=== PATIENT | female | born 1955 | race Two or more races ===

== ENCOUNTER → 2024-06-21 | Outpatient (CLI) | payer OTHER, MEDICAID, SELFPAY ==
[2024-06-21 11:25] LABS: Basophils # (Auto) 0.1 Thou/mm3 (0.0-0.2); Basophils % (Auto) 1 % (0-2.5); Eosinophils # (Auto) 0.1 Thou/mm3 (0.0-0.5); Eosinophils % (Auto) 2 % (0-10); Hemoglobin 14.5 g/dL (12.0-16.0); Immature Granulocytes % (Auto) 0 % (0-0); Immature Granulocytes Auto 0.01 Thou/mm3 (0.00-0.00); Lymphocytes # (Auto) 1.8 Thou/mm3 (1.0-4.8); Lymphocytes % (Auto) 28 % (10-50); Mean Corpuscular HGB Conc 33.7 g/dl (31.0-37.0); Mean Corpuscular Hemoglobin 29.4 pg (25.0-35.0); Mean Corpuscular Volume 87 fL (80-100); Monocytes # (Auto) 0.5 Thou/mm3 (0.0-0.8); Monocytes % (Auto) 7 % (0-12); Neutrophils # (Auto) 3.9 Thou/mm3 (1.8-7.7); Neutrophils % (Auto) 62 % (37-80); Nucleated Red Blood Cell % 0 /100 WBC (0); Platelet Count 312 Thou/mm3 (140-440); RDW Standard Deviation 40.5 fL (36.4-46.3); Red Blood Count 4.93 Miln/mm3 (4.00-5.20); White Blood Count 6.3 Thou/mm3 (3.6-11.0)
[2024-06-21 11:43] LABS: Ferritin 15 ng/mL (7.3-270.7)
== END | disposition home or self-care (01) ==
PROVIDERS: PCP Internal Medicine Gastroenterology; Referring Provider Surgery Surgical Oncology; Visit Provider Internal Medicine Gastroenterology
DX: Z12.11 Encounter for screening for malignant neoplasm of colon (principal)
CPT/HCPCS: 36415; 82728; 85025

== ENCOUNTER 2024-09-18 13:15 | Day surgery (SDC) | payer OTHER, MEDICAID, SELFPAY ==
--- NOTE | 2024-09-16 06:00 | EKG_ITS ---
[facility] Test Date: 2024-09-18 Pat Name: NAHUM AMADOR Department: Room: - Gender: Female President: CHARLIE : 1955 Requested By: Lavon Denis Order Number: [id number] Reading MD: Lavon Denis Measurements Intervals Page Rate: 61 P: AL: QRS: 30 QRSD: 83 T: 29 QT: 552 QTc: 559 Interpretive Statements SUPRAVENTRICULAR RHYTHM PROLONGED QT INTERVAL No previous ECG available for comparison /[id number]
[2024-09-16 14:08] LABS: Alanine Aminotransferase 18 U/L (10-49); Albumin, Serum 4.9 gm/dL (3.4-4.8); Albumin/Globulin Ratio 1.9 (1.2-2.2); Alkaline Phosphatase 92 U/L (46-116); Anion Gap 9 (7-16); Aspartate Amino Transferase 21 U/L (0-34); BUN/Creatinine Ratio 20 Ratio (12-20); Bilirubin,Total 0.5 mg/dL (0.3-1.2); Blood Urea Nitrogen 16 mg/dL (9-23); Calcium 10.2 mg/dL (8.3-10.6); Calcium (Corrected) 10.2 mg/dL (8.5-10.1); Carbon Dioxide 27.5 mMol/L (20.0-31.0); Chloride 105 mMol/L (98-107); Creatinine (Component) 0.8 mg/dL (0.6-1.3); Globulin 2.6 gm/dL (2.3-3.5); Glucose 96 mg/dL (74-106); Osmolality,Calculated 282 (275-295); Sodium 141 mMol/L (136-145); Total Protein 7.5 gm/dL (5.7-8.2); eGFR > 60 See Note
[2024-09-17 15:18] VITALS: BMI 25.9
[2024-09-18] VITALS (9 sets, daily range): BP systolic 139–167; BP diastolic 80–95; PULSE 64–78; RESP 12–18; TEMP 36.2–36.9; O2SAT 95–98; BMI 24.9
[2024-09-18] MEDS: RINGERS LACTATED 1000 ML 1,000 ML 20 ML IV (15:48)
--- NOTE | 2024-09-18 16:34 | SUR.PHASEII ---
[id number] Patient arrived to recovery resting comfortably in [facility], awake and talking with staff, breathing unlabored, vital signs stable, denies pain and nausea, report received from Dr. Gao and Soheila MACK
[2024-09-18] MEDS: PANTOPRAZOLE INJ 40 MG VIAL 80 MG IVP (16:58)
--- NOTE | 2024-09-18 17:51 | SUR.PHASEII ---
1756 Patient meets discharge criteria from recovery, awake and alert, breathing unlabored, vital signs stable, denies pain, ate two jello's and drinking fluids- denies nausea, patient assisted with dressing into her clothing by her , discharge instructions given to patient and patients with the assistance of the telephone database programmer analyst Deanne ID# [id number], signed discharge instructions. Patient given all her belongings prior to discharge, transported via wheelchair and left in a private vehicle
== END 2024-09-18 17:51 | disposition home or self-care (01) ==
PROVIDERS: PCP Internal Medicine; Referring Provider Internal Medicine Gastroenterology; Visit Provider Internal Medicine Gastroenterology
PROC: (CPT 43239; principal; 2024-09-18 11:45)
PROC: 0DJD8ZZ Inspection of Lower Intestinal Tract, Via Natural or Artificial Opening Endoscopic (ICD-10-PCS; CPT 45378; 2024-09-18 11:45)
DX: K64.9 Unspecified hemorrhoids (principal); K63.89 Other specified diseases of intestine; D50.9 Iron deficiency anemia, unspecified; Z01.810 Encounter for preprocedural cardiovascular examination; K29.50 Unspecified chronic gastritis without bleeding; K31.89 Other diseases of stomach and duodenum
CPT/HCPCS: 45380; 36415; 80053; 93005; A4649; J2470; J7120